=== PATIENT | male | born 1980 | race Caucasian/White ===

== ENCOUNTER 2017-01-29 09:50 | Emergency (ER) | payer SELFPAY ==
[2017-01-29 09:58] VITALS: BP 142/90
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
--- NOTE | 2017-01-29 10:34 | EKG ---
[facility] [address] [place] [address] Test Date: 2017-01-29 Test Time: 10:20:00 Pat Name: RAVEN YOU Department: Room: Gender: M [employer] Load [employer]: : 1980 Requested By: KEVIN QUICK Order Number: [id number] Reading MD: Marvin Anna MD Measurements Intervals [place] Rate: 69 P: 64 AL: 128 QRS: 53 QRSD: 88 T: 19 QT: 370 QTc: 398 Interpretive Statements SINUS RHYTHM Electronically Signed On 01-30-2017 16:39:50 [employer] by Marvin Anna MD
[2017-01-29 10:41] LABS: HEMATOCRIT 46.5 % (39.0-53.0); HEMOGLOBIN 15.3 g/dL (13.0-17.5); RED BLOOD COUNT 4.98 x10^6/uL (4.30-5.70); RED CELL DISTRIBUTION WIDTH 14.7 % (11.5-14.5); WHITE BLOOD COUNT 6.6 x10^3/uL (4.0-11.0)
[2017-01-29 10:42] LABS: BILIRUBIN,URINE NEGATIVE (NEG); GLUCOSE,URINE NEGATIVE (NEG); NITRITE,URINE NEGATIVE (NEG); PROTEIN,URINE NEGATIVE (NEG-TRACE); UROBILINOGEN,URINE 0.2 mg/dL (0.2 mg/dL)
[2017-01-29 10:49] LABS: CALCIUM 9.5 mg/dL (8.5-10.1); GFR 85.5; POTASSIUM 4.4 mmol/L (3.5-5.1)
[2017-01-29 10:50] LABS: BACTERIA,URINE 0 /HPF (0-FEW); BARBITURATES NEG (NEG); BENZODIAZEPINES NEG (NEG); CANNABINOIDS NEG (NEG); COCAINE NEG (NEG); METHADONE NEG (NEG); OPIATES NEG (NEG); PHENCYCLIDINE NEG (NEG); RBC,URINE 0 /HPF (0-2); WBC,URINE 0 /HPF (0-4)
[2017-01-29 10:54] LABS: ALBUMIN 4.3 g/dL (3.4-5.0); ALBUMIN/GLOBULIN RATIO 1.4 (1.0-1.7); TOTAL BILIRUBIN 0.4 mg/dL (0.2-1.0); TOTAL PROTEIN 7.3 g/dL (6.4-8.2)
[2017-01-29] MEDS ORDERED: DIPH25CA58 PO (12:02)
== END 2017-01-29 12:21 | disposition home or self-care (01) ==
LOC: ER 09:50
DX: G47.00 Insomnia, unspecified (principal); G89.29 Other chronic pain; F43.10 Post-traumatic stress disorder, unspecified
CPT/HCPCS: 36415; 80053; 80307; 80329; 81001; 85027; 93005; 99285-25; G0479